=== PATIENT | male | born 1990 | race Caucasian/White ===

== ENCOUNTER 2022-08-11 10:15 | Emergency (ER) | payer SELFPAY ==
[~2022-08-11] VITALS: Ht 180.3 cm; Wt 93.5 kg
[2022-08-11 10:30] VITALS: BP 127/84
== END 2022-08-11 15:40 | disposition left against medical advice (07) ==
LOC: ER 10:16
DX: M25.562 Pain in left knee (principal); Z53.21 Procedure and treatment not carried out due to patient leaving prior to being seen by health care provider

== ENCOUNTER 2022-08-26 06:38 | Emergency (ER) | payer SELFPAY ==
[~2022-08-26] VITALS: Ht 180.3 cm; Wt 87.0 kg
[2022-08-26 07:23] VITALS: BP 129/86
== END 2022-08-26 07:35 | disposition home or self-care (01) ==
LOC: ER 06:39
DX: M25.562 Pain in left knee (principal); G89.29 Other chronic pain; F17.200 Nicotine dependence, unspecified, uncomplicated; F12.90 Cannabis use, unspecified, uncomplicated; F14.10 Cocaine abuse, uncomplicated; Z59.00 Homelessness unspecified
CPT/HCPCS: 99281

== ENCOUNTER 2022-08-30 17:47 | Emergency (ER) | payer SELFPAY ==
[~2022-08-30] VITALS: Ht 180.3 cm; Wt 91.0 kg
[2022-08-30 18:08] VITALS: BP 130/87
[2022-08-30] MEDS ORDERED: ibuprofen 200mg tablet PO ONE (20:25)
== END 2022-08-30 20:53 | disposition home or self-care (01) ==
LOC: ER 17:49
DX: G89.29 Other chronic pain (principal); M25.562 Pain in left knee; F12.90 Cannabis use, unspecified, uncomplicated; F14.10 Cocaine abuse, uncomplicated; Z59.00 Homelessness unspecified
CPT/HCPCS: 73564; 99283

== ENCOUNTER 2022-09-05 03:21 | Emergency (ER) | payer MEDICAID ==
[~2022-09-05] VITALS: Ht 180.3 cm; Wt 100.0 kg
[2022-09-05 03:33] VITALS: BP 133/81
== END 2022-09-05 06:54 | disposition home or self-care (01) ==
LOC: ER 03:22
DX: T18.9XXA Foreign body of alimentary tract, part unspecified, initial encounter (principal); G89.29 Other chronic pain; F12.90 Cannabis use, unspecified, uncomplicated; F14.10 Cocaine abuse, uncomplicated; Z59.00 Homelessness unspecified; X58.XXXA Exposure to other specified factors, initial encounter; Y93.89 Activity, other specified; Y92.89 Other specified places as the place of occurrence of the external cause; Y99.8 Other external cause status
CPT/HCPCS: 74018; 99283

== ENCOUNTER 2022-09-10 15:07 | Emergency (ER) | payer MEDICAID ==
[~2022-09-10] VITALS: Ht 180.3 cm; Wt 78.6 kg
[2022-09-10 15:23] VITALS: BP 124/83
[2022-09-10] MEDS ORDERED: dexamethasone sod phosphate 10mg/ml inj PO STA (15:55)
== END 2022-09-10 16:08 | disposition home or self-care (01) ==
LOC: ER 15:08
DX: J02.9 Acute pharyngitis, unspecified (principal); G89.29 Other chronic pain; F12.90 Cannabis use, unspecified, uncomplicated; F14.10 Cocaine abuse, uncomplicated; Z59.00 Homelessness unspecified
CPT/HCPCS: 99283; J1100

== ENCOUNTER 2022-09-15 11:35 | Emergency (ER) | payer MEDICAID ==
[~2022-09-15] VITALS: Ht 175.3 cm; Wt 90.0 kg
[2022-09-15] MEDS ORDERED: ibuprofen 200mg tablet PO ONE (14:40)
[2022-09-15 14:51] VITALS: BP 118/79
[2022-09-15] MEDS ORDERED: IBUP-49 PO (15:08)
== END 2022-09-15 14:52 | disposition home or self-care (01) ==
LOC: ER 11:35
DX: G89.29 Other chronic pain (principal); M25.562 Pain in left knee; F12.10 Cannabis abuse, uncomplicated; Z59.00 Homelessness unspecified; W19.XXXA Unspecified fall, initial encounter; Y93.89 Activity, other specified; Y92.89 Other specified places as the place of occurrence of the external cause; Y99.8 Other external cause status
CPT/HCPCS: 99282

== ENCOUNTER 2022-10-18 02:06 | Emergency (ER) | payer MEDICAID ==
[~2022-10-18 02:06] MED LIST: IBUP-49 PO
== END 2022-10-18 04:08 | disposition left against medical advice (07) ==
LOC: ER 02:06
DX: M79.606 Pain in leg, unspecified (principal); Z53.21 Procedure and treatment not carried out due to patient leaving prior to being seen by health care provider

== ENCOUNTER 2022-10-31 10:33 | Emergency (ER) | payer SELFPAY ==
[~2022-10-31] VITALS: Ht 165.1 cm; Wt 90.0 kg
[2022-10-31 10:48] VITALS: BP 122/62
--- NOTE | 2022-10-31 11:14 | NUR ---
Patient seen and assessed by provider.
== END 2022-10-31 11:14 ==
LOC: ER 10:34
DX: T18.4XXA Foreign body in colon, initial encounter (principal); G89.29 Other chronic pain; F12.90 Cannabis use, unspecified, uncomplicated; F14.90 Cocaine use, unspecified, uncomplicated; Z72.89 Other problems related to lifestyle; Z59.00 Homelessness unspecified; Z79.899 Other long term (current) drug therapy; X58.XXXA Exposure to other specified factors, initial encounter; Y93.89 Activity, other specified; Y92.89 Other specified places as the place of occurrence of the external cause; Y99.8 Other external cause status
CPT/HCPCS: 72170; 74018; 99284

== ENCOUNTER 2022-11-03 19:48 | Emergency (ER) | payer SELFPAY ==
[~2022-11-03] VITALS: Ht 180.3 cm; Wt 99.0 kg
[2022-11-03 19:55] VITALS: BP 142/104
== END 2022-11-03 20:49 | disposition left against medical advice (07) ==
LOC: ER 19:48
DX: M25.562 Pain in left knee (principal); Z53.21 Procedure and treatment not carried out due to patient leaving prior to being seen by health care provider

== ENCOUNTER 2022-11-04 11:12 | Emergency (ER) | payer SELFPAY | END 2022-11-04 11:32 | disposition left against medical advice (07) | LOC: ER 11:12 | DX: M79.606 Pain in leg, unspecified (principal); Z53.21 Procedure and treatment not carried out due to patient leaving prior to being seen by health care provider ==

== ENCOUNTER 2024-11-30 20:57 | Emergency (ER) | payer MEDICAID ==
[~2024-11-30] VITALS: Ht 180.3 cm; Wt 100.0 kg
[2024-11-30 21:57] VITALS: BP 138/92; PULSE 91; RESP 16; TEMP 97.8; O2SAT 98
== END 2024-11-30 21:59 | disposition home or self-care (01) ==
LOC: ER 20:58
DX: Z00.00 Encounter for general adult medical examination without abnormal findings (principal); Z76.0 Encounter for issue of repeat prescription; Z93.3 Colostomy status; F14.90 Cocaine use, unspecified, uncomplicated; F12.90 Cannabis use, unspecified, uncomplicated
CPT/HCPCS: 99281

== ENCOUNTER 2024-12-05 19:01 | Emergency (ER) | payer MEDICAID ==
[~2024-12-05] VITALS: Ht 182.9 cm; Wt 90.9 kg
[2024-12-05 19:05] VITALS: BP 136/73; PULSE 125; RESP 18; TEMP 98; O2SAT 99
[2024-12-05] MEDS ORDERED: APIX5TAB3 PO (19:53)
== END 2024-12-05 20:27 | disposition home or self-care (01) ==
LOC: ER 19:02
DX: Z76.0 Encounter for issue of repeat prescription (principal); G89.29 Other chronic pain; F12.90 Cannabis use, unspecified, uncomplicated; F14.90 Cocaine use, unspecified, uncomplicated; Z72.89 Other problems related to lifestyle; Z59.00 Homelessness unspecified
CPT/HCPCS: 99281

== ENCOUNTER 2024-12-07 21:59 | Emergency (ER) | payer MEDICAID ==
[~2024-12-07] VITALS: Ht 180.3 cm; Wt 90.9 kg
[~2024-12-07 21:59] MED LIST changes: +APIX5TAB3 PO; -IBUP-49 PO
[2024-12-07] MEDS: acetaminophen 325mg tablet PO ONE (22:51)
[2024-12-07 23:16] VITALS: BP 148/80; PULSE 109; RESP 20; TEMP 98.6; O2SAT 98
== END 2024-12-07 23:17 | disposition home or self-care (01) ==
LOC: ER 22:00
DX: Z93.3 Colostomy status (principal); G89.29 Other chronic pain; F12.90 Cannabis use, unspecified, uncomplicated; F14.90 Cocaine use, unspecified, uncomplicated; Z79.899 Other long term (current) drug therapy; Z59.00 Homelessness unspecified
CPT/HCPCS: 99282; A4421

== ENCOUNTER 2024-12-22 18:18 | Emergency (ER) | payer MEDICAID, OTHER ==
[~2024-12-22] VITALS: Ht 180.3 cm; Wt 80.0 kg
[2024-12-22 19:33] VITALS: BP 126/80; PULSE 99; RESP 18; TEMP 98.6; O2SAT 99
== END 2024-12-22 19:35 | disposition home or self-care (01) ==
LOC: ER 18:19
DX: Z00.00 Encounter for general adult medical examination without abnormal findings (principal); Z93.3 Colostomy status; F12.90 Cannabis use, unspecified, uncomplicated; F14.90 Cocaine use, unspecified, uncomplicated
CPT/HCPCS: 99281; A4421